=== PATIENT | male | born 1955 | race Caucasian/White ===

== ENCOUNTER → 2017-09-29 | Outpatient (CLI) | payer OTHER ==
[~2017-09-29] MED LIST: ASPIR 8181 MG PO; CIPRO500 MG; COREG3.125 MG PO; GABAPENTIN100 MG PO; GLUCOPHAGE500 MG PO; LANTUS100 UNIT/M SUBQ; LEVAQUIN 500 M500 M2 PO; METFORMIN HCL500 MG PO; PEPCID20 MG PO
== END ==
LOC: M.RAD 10:51
DX: K59.00 Constipation, unspecified (principal); R10.9 Unspecified abdominal pain; R19.7 Diarrhea, unspecified

== ENCOUNTER → 2017-11-30 | Outpatient (CLI) | payer OTHER | LOC: M.ULTRA 07:00 | DX: I83.891 Varicose veins of right lower extremity with other complications (principal); M79.89 Other specified soft tissue disorders; R60.1 Generalized edema; I10 Essential (primary) hypertension; E11.9 Type 2 diabetes mellitus without complications ==

== ENCOUNTER → 2018-03-09 | Outpatient (CLI) | payer OTHER | LOC: M.ULTRA 03-05 08:00 | DX: R60.9 Edema, unspecified (principal) ==

== ENCOUNTER → 2018-03-26 | Outpatient (CLI) | payer OTHER | LOC: M.RAD 07:13 | DX: M25.512 Pain in left shoulder (principal) ==

== ENCOUNTER → 2018-03-29 | Outpatient (CLI) | payer OTHER | LOC: M.MRI 03-26 07:30 → EDSEX 03-26 07:30 → M.MRI 07:19 | DX: R22.32 Localized swelling, mass and lump, left upper limb (principal) ==

== ENCOUNTER → 2018-12-17 | Outpatient (CLI) | payer MEDICARE, OTHER | LOC: M.ULTRA 07:30 | DX: N28.1 Cyst of kidney, acquired (principal); R10.11 Right upper quadrant pain; R11.0 Nausea ==

== ENCOUNTER 2019-01-26 20:32 | Emergency (ER) | payer MEDICARE, OTHER ==
[~2019-01-26] VITALS: Ht 185.4 cm; Wt 98.9 kg
[2019-01-26] MEDS ORDERED: LISINOPRIL-HCT1 EAC2 PO (20:45)
[2019-01-26] MEDS ORDERED: TRULICITY0.75 MG/0. SQ (20:46)
[2019-01-26 21:08] LABS: ABSOLUTE BASOPHILS 0.1 thou/uL (0.0-0.2); ABSOLUTE EOSINOPHILS 0.8 thou/uL (0.0-0.7); ABSOLUTE LYMPHOCYTES 2.6 thou/uL (0.8-5.3); ABSOLUTE MONOCYTES 0.5 thou/uL (0.0-1.2); ABSOLUTE NEUTROPHILS 4.2 thou/uL (1.6-8.1); BASOPHILS 1.2 %; EOSINOPHILS 9.2 %; HEMATOCRIT 35.2 % (42.0-52.0); HEMOGLOBIN 12.5 gm/dL (14.0-18.0); LYMPHOCYTES 32.2 %; MCH 30.8 pg (26.0-34.0); MCHC 35.4 g/dL (28.0-37.0); MONOCYTES 6.1 %; MPV 6.9 fl. (7.2-11.1); NUCLEATED RBCS 0 /100WBC; PLATELET COUNT* 297 thou/uL (150-400); POLYS 51.3 %; RBC 4.05 mil/uL (4.50-6.00); RDW-CV 12.8 % (10.5-14.5); WBC 8.2 thou/uL (4.0-11.0)
[2019-01-26 21:15] LABS: CALCIUM 9.3 mg/dL (8.5-10.1); CREATININE 1.2 mg/dL (0.6-1.3); POTASSIUM 4.2 mmol/L (3.5-5.1)
[2019-01-26 21:20] LABS: ALBUMIN 2.9 g/dL (3.4-5.0); TOTAL BILIRUBIN 0.2 mg/dL (<0.1-1.0); TOTAL PROTEIN 5.9 g/dL (6.4-8.2)
[2019-01-26] MEDS ORDERED: NORCO 5-325 TA1 EAC1 PO (21:34)
[2019-01-26 21:52] VITALS: BP 155/102
--- NOTE | 2019-01-29 08:36 | EKG ---
[place] [address] ELECTROCARDIOGRAM REPORT Name: CARLOS MEDELLIN JR Room: [facility]#: [id number] Admission: 01/26/19 Attend Phys: Discharge: 01/26/19 Date of : 51 Report #: [id number] THIS REPORT FOR: //name// [facility] ED Test Date: 2019-01-26 Test Time: 21:02:41 Pat Name: CARLOS MEDELLIN Department: Room: Gender: M Hospital Unit Coordinator: : 1955 Requested By: Carlyle Quiroga Order Number: [id number] MD: Daquan Israel Measurements Intervals [place] Rate: 93 P: 5 VT: 184 QRS: 6 QRSD: 76 T: 54 QT: 327 QTc: 407 Interpretive Statements Sinus rhythm Compared to ECG 11/23/2016 17:17:47 No significant changes Electronically Signed On 01-29-2019 8:36:15 CDT by Daquan Israel [email or web address] <ELECTRONICALLY SIGNED> By: Daquan Israel MD, [facility] 01/29/19 0836 01 01 Daquan Israel MD, FACC /EPI
== END 2019-01-26 21:53 | disposition home or self-care (01) ==
LOC: M.ERS 20:32
PROVIDERS: Physician Assistant
DX: E11.42 Type 2 diabetes mellitus with diabetic polyneuropathy (principal); I10 Essential (primary) hypertension; Z87.442 Personal history of urinary calculi; Z79.4 Long term (current) use of insulin; Z88.0 Allergy status to penicillin

== ENCOUNTER → 2019-08-13 | Outpatient (CLI) | payer MEDICARE, OTHER ==
[~2019-08-13] MED LIST changes: +LISINOPRIL-HCT1 EAC2 PO; +NORCO 5-325 TA1 EAC1 PO; +TRULICITY0.75 MG/0. SQ
--- NOTE | 2019-08-13 13:48 | 2DMMODE ---
[place] [address] 2 D/M-MODE ECHOCARDIOGRAM Name: CARLOS MEDELLIN JR Room: [facility]#: [id number] Admission: 08/13/19 Attend Phys: Daquan Israel, Discharge: Date of : 51 Date of Service: 08/13/19 1346 Report #: [id number] THIS REPORT FOR: cc: Carolina Garg MD, Katrina MD Liston, Michael J. MD [facility] ~ APPROVED REPORT Study performed: 08/13/2019 11:15:09 EXAM: Comprehensive 2D, Doppler, and color-flow Echocardiogram Patient Location: Out-Patient BSA: 2.31 HR: 94 bpm BP: 148/82 mmHg Other Information Study Quality: Good Indications CAD 2D Dimensions IVSd: 12.73 (7-11mm) LVOT Diam: 20.32 (18-24mm) LVDd: 44.84 mm PWd: 11.29 (7-11mm) Ascending Ao: 26.20 (22-36mm) LVDs: 27.83 (25-40mm) Aortic Root: 30.63 mm Volumes Left Atrial Volume (Systole) LA ESV Index: 13.30 mL/m2 Aortic Valve AoV Peak Eric.: 1.01 m/s AO Peak Gr.: 4.12 mmHg LVOT Max P.36 mmHg AO Mean Gr.: 2.52 mmHg LVOT Mean P.25 mmHg LVOT Max V: 1.04 m/s AO V2 VTI: 20.57 cm LVOT Mean V: 0.69 m/s YOMI (VTI): 3.32 cm2 LVOT V1 VTI: 21.04 cm Mitral Valve E/A Ratio: 0.69 [place] [address] 2 D/M-MODE ECHOCARDIOGRAM Name: CARLOS MEDELLIN JR Room: [facility]#: [id number] Admission: 08/13/19 Attend Phys: Daquan Israel, Discharge: Date of : 51 Date of Service: 08/13/19 1346 Report #: [id number] MV Decel. Time: 87.02 ms MV E Max Eric.: 0.70 m/s MV PHT: 25.24 ms MVA (PHT): 8.72 cm2 TDI E/Lateral E': 10.00 E/Medial E': 11.67 Medial E' Eric.: 0.06 m/s Lateral E' Eric.: 0.07 m/s Pulmonary Valve PV Peak Eric.: 0.78 m/s PV Peak Gr.: 2.45 mmHg Left Ventricle The left ventricle is normal size. There is normal LV segmental wall motion. There is normal left ventricular wall thickness. Left ventricular systolic function is normal. LVEF is 60-65%. Grade I - abnormal relaxation pattern. Right Ventricle The right ventricle is normal size. The right ventricular systolic function is normal. Atria The left atrium size is normal. The right atrium size is normal. Aortic Valve The aortic valve is normal in structure. No aortic regurgitation is present. There is no aortic valvular stenosis. Mitral Valve The mitral valve is normal in structure. There is no mitral valve regurgitation noted. No evidence of mitral valve stenosis. Tricuspid Valve The tricuspid valve is normal in structure. There is no tricuspid valve regurgitation noted. Pulmonic Valve The pulmonary valve is normal in structure. There is no pulmonic valvular regurgitation. Great Vessels The aortic root is normal in size. IVC is normal in size and collapses >50% [place] [address] 2 D/M-MODE ECHOCARDIOGRAM Name: CARLOS MEDELLIN JR Room: [facility]#: [id number] Admission: 08/13/19 Attend Phys: Daquan Israel, Discharge: Date of : 51 Date of Service: 08/13/19 1346 Report #: [id number] Pericardium There is no pericardial effusion. <Conclusion> The left ventricle is normal size. There is normal left ventricular wall thickness. Left ventricular systolic function is normal. LVEF is 60-65%. Grade I - abnormal relaxation pattern. IVC is normal in size and collapses >50% with inspiration. <ELECTRONICALLY SIGNED> By: Daquan Israel MD, FACC 08/13/19 1346 1346 Daquan Israel MD, FACC /INF
--- NOTE | 2019-08-13 14:16 | CARDNUC ---
[place] [address] CARDIAC NUCLEAR IMAGING REPORT Name: CARLOS MEDELLIN JR Room: [facility]#: [id number] Admission: 08/13/19 Attend Phys: Daquan Israel, Discharge: Date of : 51 Date of Service: 08/13/19 1415 Report #: [id number] THIS REPORT FOR: cc: Carolina Garg MD, Katrina MD Liston, Michael J. MD [facility] ~ APPROVED REPORT Imaging Protocol: Stress Tc-99m/Rest Tc-99m 1 day Study performed: 08/13/2019 07:30:00 Indication: Chest pain, Dyspnea, Fatigue, Edema. Patient Location: Out-Patient Stress Tech: Alix Figueroa Stress Nurse: Therese Barahona RN Ht: 6 ft 1 in Wt: 236 lbs BSA: 2.31 m2 BMI: 31.13 Medical History Medical History: Angina, Dyspnea, LE Edema, increased Fatigue, Neuropathy, HLD, HTN, DM. Medications: Lasix, K-Dur, Metformin, Lantus. Allergies: Penicillins. Cardiac Risk Factors: Age, Diabetes (insulin), Edema, Dyspnea, Chest pain, HTN, HLD, BMI 31.13. Previous Cardiac Procedures: None Pretest Chest Pain Characteristics: No chest pain Exercise History: Indeterminate Physical Disabilities: Dyspnea, Unstable gait, generalized weakness. Meds Held (24 hrs): None Resting Data Rest SPECT myocardial perfusion imaging was performed in supine position 30 minutes following the intravenous injection of 9.7 mCi of Tc-99m Sestamibi. Time of rest injection: 07:50 The images were gated to evaluate regional wall motion and calculate left ventricular ejection fraction. Administration Route: IV Administration Site: Right [place] [address] CARDIAC NUCLEAR IMAGING REPORT Name: CARLOS MEDELLIN JR Room: [facility]#: [id number] Admission: 08/13/19 Attend Phys: Daquan Israel, Discharge: Date of : 51 Date of Service: 08/13/19 1415 Report #: [id number] Pharmacologic stress test was performed by injecting Regadenoson 0.4 mg IV push over 10-15 seconds immediately followed by the intravenous injection of 33.7 mCi of Tc-99m Sestamibi. Time of stress injection: 09:30 Administration Route: IV Administration Site: Right Hand Heart Rate at time of stress injection: 121 bpm. Gated Stress SPECT was performed 40 minutes after stress injection. The images were gated to evaluate regional wall motion and calculate left ventricular ejection fraction. Prone imaging was performed. Stress Test Details Stress Test: Pharmacologic stress was paired with low level exercise. Reason for pharmacologic stress test: Generalized weakness, unstable gait.. HR Max Heart Rate (APMHR): 155 bpm Resting HR: 90 bpm Target HR (85% APMHR): 131 bpm Max HR Achieved: 121 bpm % of APMHR: 78 Recovery HR: 104 bpm BP Resting BP: 174/109 mmHg Max BP: 148/79 mmHg Recovery BP: 172/99 mmHg ECG Resting ECG: Sinus Rhythm Stress ECG: Sinus Tachycardia ST Change: None Arrhythmia: None Recovery ECG: Sinus Rhythm Recovery ST Change: None Recovery Arrhythmia: None Clinical Reason for Termination: Completed protocol Stress Symptoms: Dyspnea, Lightheadedness, increased weakness. Exercise duration: 4 min 00 sec Exercise capacity: 2.30 METs The patient tolerated walking Lexiscan protocol without [place] [address] CARDIAC NUCLEAR IMAGING REPORT Name: CARLOS MEDELLIN JR Room: [facility]#: [id number] Admission: 08/13/19 Attend Phys: Daquan Israel, Discharge: Date of : 51 Date of Service: 08/13/19 1415 Report #: [id number] Nurse Comments A 63 year old male presented for a walking Lexiscan r/t chest pain, dyspnea, increased fatigue and LE edema. Test well tolerated. Recovery unremarkable with PO caffeine. Patient was escorted by staff to Nuclear Medicine for imaging. Patient was stable and stated he felt good at that time. Stress ECG Conclusion The baseline 12-lead EKG shows sinus rhythm without acute ST segment or T wave abnormality. EKGs obtained during and post walking Lexiscan protocol showed sinus rhythm and sinus tachycardia with no significant ST segment or T wave changes when compared to baseline. There were no stress-induced arrhythmias. Study Quality Study: Good Artifact: No artifact Study Data At rest, the left ventricular ejection fraction was 64%.. Post stress, the left ventricular ejection was 60%.. TID = 1.05. Perfusion Perfusion images obtained at rest and post stress show uniform uptake of the radioisotope throughout the myocardium. There were no defects to suggest infarct or ischemia. Wall Motion Left ventricular systolic function appears normal global and with no focal wall motion abnormalities. Nuclear Conclusion ECG Findings: negative for ischemia Clinical Findings: negative for ischemia Nuclear Findings: negative for ischemia Exercise Capacity: not assessed Left Ventricular Function: normal Risk Study: low Myocardial perfusion images show no defect to suggest infarct or ischemia. Left ventricular systolic function appears normal on gated studies. There were no significant focal wall motion abnormalities. <Conclusion> The baseline 12-lead EKG shows sinus rhythm without acute [place] [address] CARDIAC NUCLEAR IMAGING REPORT Name: CARLOS MEDELLIN JR Room: [facility]#: [id number] Admission: 08/13/19 Attend Phys: Daquan Israel, Discharge: Date of : 51 Date of Service: 08/13/19 1415 Report #: [id number] or T wave abnormality. EKGs obtained during and post walking Lexiscan protocol showed sinus rhythm and sinus tachycardia with no significant ST segment or T wave changes when compared to baseline. There were no stress-induced arrhythmias. <ELECTRONICALLY SIGNED> By: Daquan Israel MD, FACC 08/13/19 1415 1415 1415 Daquan Israel MD, FACC /INF
== END ==
LOC: M.CRD 07-31 15:24 → M.NUC 07:24
DX: R06.02 Shortness of breath (principal); R60.0 Localized edema; E11.42 Type 2 diabetes mellitus with diabetic polyneuropathy; Z79.4 Long term (current) use of insulin

== ENCOUNTER 2020-08-03 18:46 | Observation (INO) | payer MEDICARE, OTHER ==
[~2020-08-03] VITALS: Ht 185.4 cm; Wt 99.8 kg
[2020-08-03 19:09] VITALS: BP 194/101
[2020-08-03] MEDS ORDERED: FUROSEMIDE 40 M40 MG PO (19:16)
[2020-08-03] MEDS ORDERED: LISINOPRIL20 MG PO (19:17)
[2020-08-03] MEDS ORDERED: NORVASC10 MG PO (19:17)
[2020-08-03 20:03] LABS: HEMATOCRIT 33.4 % (42.0-52.0); HEMOGLOBIN 11.3 gm/dL (14.0-18.0); MCH 29.8 pg (26.0-34.0); MCHC 33.8 g/dL (28.0-37.0); MPV 6.7 fl. (7.2-11.1); NUCLEATED RBCS 0 /100WBC; PLATELET COUNT* 290 thou/uL (150-400); RDW-CV 12.7 % (10.5-14.5); WBC 8.5 thou/uL (4.0-11.0)
[2020-08-03 20:13] LABS: CALCIUM 8.5 mg/dL (8.5-10.1); CREATININE 1.5 mg/dL (0.6-1.3); POTASSIUM 4.6 mmol/L (3.5-5.1)
[2020-08-03 20:15] LABS: APTT 27.1 Seconds (25.0-31.3); PROTIME 10.7 Seconds (9.20-11.50)
[2020-08-03 20:23] LABS: TOTAL BILIRUBIN 0.4 mg/dL (<0.1-1.0); TOTAL PROTEIN 6.5 g/dL (6.4-8.2)
[2020-08-03 20:43] LABS: ABSOLUTE EOSINOPHILS 0.6 thou/uL (0.0-0.7); ABSOLUTE LYMPHOCYTES 2.1 thou/uL (0.8-5.3); ABSOLUTE MONOCYTES 0.4 thou/uL (0.0-1.2); ABSOLUTE NEUTROPHILS 5.4 thou/uL (1.6-8.1); ATYPICAL LYMPHS 3 %; METAMYELOCYTES 1 %
[2020-08-03 20:44] LABS: PLATELET ESTIMATE ADEQUATE
[2020-08-04] VITALS (7 sets, daily range): BP systolic 144–169; BP diastolic 75–96
[2020-08-04] MEDS ORDERED: ASA81BEC PO (08:26)
[2020-08-04] MEDS ORDERED: NITROGLYCERIN0.4 MG SUBLING (08:26)
[2020-08-04] MEDS ORDERED: COREG6.25 MG PO (08:26)
--- NOTE | 2020-08-04 14:11 | EKG ---
[place] [address] ELECTROCARDIOGRAM REPORT Name: CARLOS MEDELLIN JR Room: [address]R.#: [id number] Admission: 08/03/20 Attend Phys: Good Carlisle Discharge: Date of : 51 Date of Service: 08/03/201915 Report #: [id number] THIS REPORT FOR: //name// [facility] ED Test Date: 2020-08-03 Test Time: 19:16:45 Pat Name: CARLOS MEDELLIN Department: Room: [facility] Gender: M Client Support Consultant: KRISTEN : 1955 Requested By: Giovanna Adhikari Order Number: [id number] MD: Shyam Edward Measurements Intervals [place] Rate: 94 P: 26 CO: 177 QRS: 3 QRSD: 82 T: 56 QT: 336 QTc: 421 Interpretive Statements Sinus rhythm Compared to ECG 01/26/2019 21:02:41 No significant changes Electronically Signed On 08-04-2020 14:11:16 CDT by Shyam Edward [email or web address] <ELECTRONICALLY SIGNED> By: Shyam Edward MD, FACC 08/04/20 1411 15 15 Shyam Edward MD, [facility] /EPI
--- NOTE | 2020-08-04 16:16 | 2DMMODE ---
[place] [address] 2 D/M-MODE ECHOCARDIOGRAM Name: MEDELLINCARLOS JR Room: [address] [facility]#: [id number] Admission: 08/03/20 Attend Phys: Good [place]isle Discharge: Date of : 51 Date of Service: 08/04/20 1616 Report #: [id number] THIS REPORT FOR: cc: Carolina Gagr MD, Katrina MD Liston, Michael J. MD [facility] ~ APPROVED REPORT Study performed: 08/04/2020 13:52:32 EXAM: Comprehensive 2D, Doppler, and color-flow Echocardiogram Patient Location: In-Patient Room #: 170- BSA: 2.24 HR: 92 bpm BP: 156/79 mmHg Other Information Study Quality: Good Indications Dyspnea 2D Dimensions IVSd: 10.03 (7-11mm) LVOT Diam: 20.21 (18-24mm) LVDd: 46.34 mm PWd: 9.84 (7-11mm) Ascending Ao: 29.81 (22-36mm) LVDs: 23.12 (25-40mm) Aortic Root: 30.85 mm Volumes Left Atrial Volume (Systole) LA ESV Index: 17.40 mL/m2 Aortic Valve AoV Peak Eric.: 1.14 m/s AO Peak Gr.: 5.22 mmHg LVOT Max P.38 mmHg AO Mean Gr.: 2.95 mmHg LVOT Mean P.82 mmHg LVOT Max V: 0.92 m/s AO V2 VTI: 22.48 cm LVOT Mean V: 0.62 m/s YOMI (VTI): 2.91 cm2 LVOT V1 VTI: 20.43 [place] [address] 2 D/M-MODE ECHOCARDIOGRAM Name: CARLOS MEDELLIN Room: [address] [facility]#: [id number] Admission: 08/03/20 Attend Phys: Good Carlisle Discharge: Date of : 51 Date of Service: 08/04/20 1616 Report #: [id number] E/A Ratio: 0.60 MV Decel. Time: 103.90 ms MV E Max Eric.: 0.67 m/s MV PHT: 30.13 ms MVA (PHT): 7.30 cm2 TDI E/Lateral E': 7.44 E/Medial E': 6.09 Medial E' Eric.: 0.11 m/s Lateral E' Eric.: 0.09 m/s Pulmonary Valve PV Peak Eric.: 0.91 m/s PV Peak Gr.: 3.34 mmHg Left Ventricle The left ventricle is normal size. There is normal LV segmental wall motion. There is normal left ventricular wall thickness. Left ventricular systolic function is normal. LVEF is 55-60%. Grade I - abnormal relaxation pattern. Right Ventricle The right ventricle is normal size. The right ventricular systolic function is normal. Atria The left atrium size is normal. The right atrium size is normal. Aortic Valve The aortic valve is normal in structure. No aortic regurgitation is present. There is no aortic valvular stenosis. Mitral Valve The mitral valve is normal in structure. Mild mitral regurgitation. No evidence of mitral valve stenosis. Tricuspid Valve The tricuspid valve is normal in structure. There is no tricuspid valve regurgitation noted. Pulmonic Valve The pulmonary valve is normal in structure. There is no pulmonic valvular regurgitation. Great Vessels The aortic root is normal in size. IVC [place] [address] 2 D/M-MODE ECHOCARDIOGRAM Name: LACIECARLOS LUIS DARDEN [address] [id number] Admission: 08/03/20 Attend Phys: Good [place]isle Discharge: Date of : 51 Date of Service: 08/04/20 1616 Report #: [id number] collapses >50% with inspiration. Pericardium There is no pericardial effusion. <Conclusion> The left ventricle is normal size. There is normal left ventricular wall thickness. Left ventricular systolic function is normal. LVEF is 55-60%. Grade I - abnormal relaxation pattern. Mild mitral regurgitation. IVC is normal in size and collapses >50% with inspiration. <ELECTRONICALLY SIGNED> By: Daquan Israel MD, FACC 08/04/20 1616 161 161 Daquan Israel MD, FACC /INF
[2020-08-04] MEDS ORDERED: CARVEDILOL12.5 MG PO (16:17)
[2020-08-04] MEDS ORDERED: MAXZIDE-25 MG1 EACH PO (16:17)
== END 2020-08-04 16:55 | disposition home or self-care (01) ==
LOC: M.ERS 18:46 → M.TBA-ER 22:57
PROVIDERS: Personal Emergency Response Attendant; ADMIT Internal Medicine; ATTEND Internal Medicine
DX: I16.0 Hypertensive urgency (principal); Z20.822 Contact with and (suspected) exposure to COVID-19; R07.89 Other chest pain; E11.40 Type 2 diabetes mellitus with diabetic neuropathy, unspecified; H44.819 Hemophthalmos, unspecified eye; I10 Essential (primary) hypertension; I13.2 Hypertensive heart and chronic kidney disease with heart failure and with stage 5 chronic kidney disease, or end stage renal disease; E11.22 Type 2 diabetes mellitus with diabetic chronic kidney disease; I50.33 Acute on chronic diastolic (congestive) heart failure; N18.9 Chronic kidney disease, unspecified; Z79.4 Long term (current) use of insulin; Z79.899 Other long term (current) drug therapy

== ENCOUNTER 2021-02-16 09:21 | Inpatient (IN) | payer MEDICARE, OTHER ==
[~2021-02-16] VITALS: Ht 185.4 cm; Wt 105.8 kg
[~2021-02-16 09:21] MED LIST changes: +ASA81BEC PO; +CARVEDILOL12.5 MG PO; +COREG6.25 MG PO; +FUROSEMIDE 40 M40 MG PO; +LISINOPRIL20 MG PO; +MAXZIDE-25 MG1 EACH PO; +NITROGLYCERIN0.4 MG SUBLING; +NORVASC10 MG PO
[2021-02-16 09:35] VITALS: BP 195/108
[2021-02-16] MEDS ORDERED: NORVASC5 M1 PO (09:41)
[2021-02-16 10:02] LABS: ABSOLUTE BASOPHILS 0.1 thou/uL (0.0-0.2); ABSOLUTE EOSINOPHILS 0.9 thou/uL (0.0-0.7); ABSOLUTE LYMPHOCYTES 1.6 thou/uL (0.8-5.3); ABSOLUTE MONOCYTES 0.5 thou/uL (0.0-1.2); ABSOLUTE NEUTROPHILS 6.1 thou/uL (1.6-8.1); BASOPHILS 1.1 %; HEMOGLOBIN 12.4 gm/dL (14.0-18.0); LYMPHOCYTES 17.2 %; MCHC 34.4 g/dL (28.0-37.0); MCV 87.2 fL (80.0-100.0); MPV 6.9 fl. (7.2-11.1); NUCLEATED RBCS 0 /100WBC; PLATELET COUNT* 363 thou/uL (150-400); POLYS 66.7 %; RBC 4.13 mil/uL (4.50-6.00); RDW-CV 13.1 % (10.5-14.5); WBC 9.1 thou/uL (4.0-11.0)
[2021-02-16 10:05] LABS: CALCIUM 8.4 mg/dL (8.5-10.1); CREATININE 2.1 mg/dL (0.6-1.3); POTASSIUM 5.1 mmol/L (3.5-5.1)
[2021-02-16 10:16] LABS: ALBUMIN 2.7 g/dL (3.4-5.0); TOTAL BILIRUBIN 0.3 mg/dL (<0.1-1.0); TOTAL PROTEIN 6.3 g/dL (6.4-8.2)
[2021-02-16 14:00] VITALS: BP 193/109
[2021-02-16 19:00] VITALS: BP 166/87
[2021-02-16 23:07] VITALS: BP 142/74
[2021-02-17 03:05] VITALS: BP 101/51
[2021-02-17 03:23] LABS: ABSOLUTE BASOPHILS 0.1 thou/uL (0.0-0.2); ABSOLUTE EOSINOPHILS 0.7 thou/uL (0.0-0.7); ABSOLUTE MONOCYTES 0.4 thou/uL (0.0-1.2); ABSOLUTE NEUTROPHILS 4.9 thou/uL (1.6-8.1); BASOPHILS 1.2 %; EOSINOPHILS 8.3 %; HEMATOCRIT 33.1 % (42.0-52.0); HEMOGLOBIN 11.3 gm/dL (14.0-18.0); LYMPHOCYTES 24.2 %; MCHC 34.2 g/dL (28.0-37.0); MCV 87.8 fL (80.0-100.0); MONOCYTES 5.2 %; MPV 6.8 fl. (7.2-11.1); NUCLEATED RBCS 0 /100WBC; PLATELET COUNT* 328 thou/uL (150-400); POLYS 61.1 %; RBC 3.77 mil/uL (4.50-6.00); RDW-CV 13.2 % (10.5-14.5); WBC 8.1 thou/uL (4.0-11.0)
[2021-02-17 03:39] LABS: CALCIUM 8.2 mg/dL (8.5-10.1); CREATININE 2.2 mg/dL (0.6-1.3); POTASSIUM 4.3 mmol/L (3.5-5.1)
[2021-02-17 08:15] VITALS: BP 139/81
--- NOTE | 2021-02-17 08:47 | EKG ---
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
[2021-02-17 10:25] LABS: CHOLESTEROL 183 mg/dL (<200); HDL CHOLESTEROL 37 mg/dL (>40); LDL CHOLESTEROL 112 mg/dL (<100); TC:HDL 4.9 Ratio (Not establshd); TRIGLYCERIDE 174 mg/dL (<150); VLDL 35 mg/dL (<40)
[2021-02-17 10:57] LABS: SERUM ASSESSMENT Clear
[2021-02-17 12:17] VITALS: BP 148/89
--- NOTE | 2021-02-17 13:04 | 2DMMODE ---
[place] [address] 2 D/M-MODE ECHOCARDIOGRAM Name: CARLOS MEDELLIN JR Room: [place] [address] ADM IN Juan.#: [id number] Admission: 02/16/21 Attend Phys: Juan Winters, Discharge: Date of : 51 Date of Service: 02/17/21 1304 Report #: [id number] THIS REPORT FOR: cc: Carolina Garg MD, Katrina MD Blick,Shyam Woodard MD [facility] ~ APPROVED REPORT Study performed: 02/16/2021 16:30:38 EXAM: Comprehensive 2D, Doppler, and color-flow Echocardiogram Patient Location: In-Patient Room #: ER Status: routine BSA: 2.28 HR: 83 bpm BP: 150/80 mmHg Rhythm: NSR Other Information Study Quality: Good Indications Congestive Heart Failure 2D Dimensions IVSd: 13.89 (7-11mm) LVOT Diam: 22.37 (18-24mm) LVDd: 45.35 mm PWd: 11.65 (7-11mm) Ascending Ao: 32.83 (22-36mm) LVDs: 27.73 (25-40mm) Aortic Root: 35.65 mm Volumes Left Atrial Volume (Systole) LA ESV Index: 24.40 mL/m2 Aortic Valve AoV Peak Eric.: 1.48 m/s AO Peak Gr.: 8.75 mmHg LVOT Max P.56 mmHg AO Mean Gr.: 4.99 mmHg LVOT Mean P.22 mmHg LVOT Max V: 1.07 m/s AO V2 VTI: 29.28 cm LVOT Mean V: 0.68 m/s YOMI (VTI): 3.24 cm2 LVOT V1 VTI: 24.14 [place] [address] 2 D/M-MODE ECHOCARDIOGRAM Name: CARLOS MEDELLIN JR Room: [address] IN [facility].#: [id number] Admission: 02/16/21 Attend Phys: Juan Winters, Discharge: Date of : 51 Date of Service: 02/17/21 1304 Report #: [id number] Mitral Valve E/A Ratio: 1.20 MV Decel. Time: 167.83 ms MV E Max Eric.: 1.13 m/s MV PHT: 48.67 ms MVA (PHT): 4.52 cm2 TDI E/Lateral E': 10.27 E/Medial E': 8.07 Medial E' Eric.: 0.14 m/s Lateral E' Eric.: 0.11 m/s Pulmonary Valve PV Peak Eric.: 0.95 m/s PV Peak Gr.: 3.64 mmHg Left Ventricle The left ventricle is normal size. There is normal LV segmental wall motion. Mild concentric left ventricular hypertrophy. Left ventricular systolic function is normal. The left ventricular ejection fraction is within the normal range. LVEF is 60-65%. The left ventricular diastolic function is normal. Right Ventricle The right ventricle is normal size. The right ventricular systolic function is normal. Atria The left atrium size is normal. The right atrium size is normal. Aortic Valve The aortic valve is normal in structure. No aortic regurgitation is present. There is no aortic valvular stenosis. Mitral Valve The mitral valve is normal in structure. Trace mitral regurgitation. No evidence of mitral valve stenosis. Tricuspid Valve The tricuspid valve is normal in structure. Trace tricuspid regurgitation. Unable to assess PA pressure. Pulmonic Valve The pulmonary valve is normal in structure. There is no pulmonic [place] [address] 2 D/M-MODE ECHOCARDIOGRAM Name: CARLOS MEDELLIN JR Room: [address] IN [facility]#: [id number] Admission: 02/16/21 Attend Phys: Juan Winters, Discharge: Date of : 51 Date of Service: 02/17/21 1304 Report #: [id number] Great Vessels The aortic root is normal in size. IVC is normal in size and collapses >50% with inspiration. Pericardium There is no pericardial effusion. <Conclusion> Mild concentric left ventricular hypertrophy. LVEF is 60-65%. <ELECTRONICALLY SIGNED> By: Shyam Edward MD, FACC 02/17/21 1304 03 03 Shyam Edward MD, FACC /INF
[2021-02-17 16:30] VITALS: BP 132/72
[2021-02-17 21:06] LABS: COMPLEMENT-C4 30 mg/dL (12-38)
[2021-02-17 21:23] VITALS: BP 130/68
[2021-02-17 21:35] VITALS: BP 130/68
[2021-02-17] MEDS ORDERED: COREG25 M1 PO (22:32)
[2021-02-17] MEDS ORDERED: TRIAMTERENE-HC1 EAC3 PO (22:33)
[2021-02-18] VITALS: BP 149/80
[2021-02-18 04:00] VITALS: BP 144/79
[2021-02-18 05:15] LABS: CALCIUM 8.1 mg/dL (8.5-10.1); CREATININE 2.1 mg/dL (0.6-1.3); POTASSIUM 4.6 mmol/L (3.5-5.1)
[2021-02-18] MEDS ORDERED: CARDURA4 MG PO (07:45)
[2021-02-18 08:16] VITALS: BP 128/68
[2021-02-18] MEDS ORDERED: BUMETANIDE 1 MG1 M1 PO (08:59)
[2021-02-18 12:00] VITALS: BP 138/76
[2021-02-18 14:00] VITALS: BP 138/76
[2021-02-20 07:36] LABS: HEPATITIS B SURFACE AG Negative (Negative)
[2021-02-22 18:06] LABS: GLOBULIN TOTAL 2.7 g/dL (2.2-3.9); M-SPIKE Not Observed g/dL (Not Observed)
== END 2021-02-18 15:20 | disposition home or self-care (01) | DRG 291 ==
LOC: M.ERS 09:21 → M.TBA-ER 12:07 → M.2W 02-17 21:45
PROVIDERS: Family Medicine; Internal Medicine Nephrology; Registered Nurse; ADMIT Internal Medicine; ATTEND Internal Medicine
DX: I13.0 Hypertensive heart and chronic kidney disease with heart failure and stage 1 through stage 4 chronic kidney disease, or unspecified chronic kidney disease (principal); N17.0 Acute kidney failure with tubular necrosis; I50.33 Acute on chronic diastolic (congestive) heart failure; N18.9 Chronic kidney disease, unspecified; E87.5 Hyperkalemia; E78.5 Hyperlipidemia, unspecified; E11.22 Type 2 diabetes mellitus with diabetic chronic kidney disease; Z20.822 Contact with and (suspected) exposure to COVID-19; Z87.442 Personal history of urinary calculi; Z98.49 Cataract extraction status, unspecified eye; Z79.899 Other long term (current) drug therapy; Z79.4 Long term (current) use of insulin; Z88.0 Allergy status to penicillin; Z91.041 Radiographic dye allergy status

== ENCOUNTER → 2021-03-11 | Outpatient (CLI) | payer MEDICARE, OTHER ==
[~2021-03-11] VITALS: Ht 180.3 cm; Wt 104.3 kg
[~2021-03-11] MED LIST changes: +BUMETANIDE 1 MG1 M1 PO; +CARDURA4 MG PO; +COREG25 M1 PO; +NORVASC5 M1 PO; +TRIAMTERENE-HC1 EAC3 PO
--- NOTE | 2021-03-11 17:48 | CARDNUC ---
[place] [address] CARDIAC NUCLEAR IMAGING REPORT Name: CARLOS MEDELLIN JR Room: [facility]#: [id number] Admission: 03/11/21 Attend Phys: Daquan Israel, Discharge: Date of : 51 Date of Service: 03/11/21 1747 Report #: [id number] THIS REPORT FOR: cc: Carolina Garg MD, Katrina MD Liston, Michael J. MD [facility] ~ APPROVED REPORT Study performed: 03/11/2021 11:05:31 Exam: Nuclear Stress Test Indication: Dyspnea Patient Location: Out-Patient Stress Nurse: Leslee Dawn RN Ht: 6 ft 1 in Wt: 229 lbs BSA: 2.28 m2 BMI: 30.20 Medical History Medical History: CHF, Diabetes, HTN, Hyperlipidemia Medications: CARVEDILOL, CARDURA Allergies: PENICILLIN Cardiac Risk Factors: Age, Hyperlipidemia, HTN Exercise History: Sedentary Meds Held (24 hrs): CARVEDILOL Stress Test Details Stress Test: Pharmacologic stress testing performed using 0.4 mg of regadenoson per 5 mL given IV over 10 seconds. HR Resting HR: 83 bpm Max Heart Rate (APMHR): 153 bpm Max HR Achieved: 88 bpm Target HR (85% APMHR): 130 bpm % of APMHR: 57 Recovery HR: 88 bpm BP Resting BP: 209/99 mmHg Max BP: 107/60 mmHg ECG Resting ECG: Sinus Rhythm Stress ECG: Sinus Rhythm ST Change: [place] [address] CARDIAC NUCLEAR IMAGING REPORT Name: CARLOS MEDELLIN JR Room: [facility]#: [id number] Admission: 03/11/21 Attend Phys: Daquan Israel, Discharge: Date of : 51 Date of Service: 03/11/21 1747 Report #: [id number] Arrhythmia: None Recovery ECG: Sinus Rhythm Recovery ST Change: None Recovery Arrhythmia: None Clinical Reason for Termination: Completed protocol The patient tolerated Lexiscan infusion with no significant cardiac symptoms. Nurse Comments PATIENT IN POOR PHYSICAL CONDITION. UNABLE TO WALK ON TREADMILL Stress ECG Conclusion The baseline twelve-lead EKG shows sinus rhythm without significant ST segment or T wave abnormality. EKGs obtained during and post Lexiscan infusion show sinus rhythm with no significant ST segment or T wave changes when compared to baseline. There were no stress-induced arrhythmias. NM EXAM: Myocardial Perfusion REST/STRESS Resting Data Rest SPECT myocardial perfusion imaging was performed in supine position 30 minutes following the intravenous injection of 10.3 mCi of Tc-99m Sestamibi. Time of rest injection: 10:00 The images were gated to evaluate regional wall motion and calculate left ventricular ejection fraction. Administration Route: IV Administration Site: Left Hand Pharmacologic Stress Pharmacologic stress test was performed by injecting Regadenoson 0.4 mg IV push followed by the intravenous injection of 34.5 mCi of Tc-99m Sestamibi. Time of stress injection: 11:10 Administration Route: IV Administration Site: Left Hand Heart Rate at time of stress injection: 86 bpm. Gated Stress SPECT was performed 45 minutes after stress injection. The images were gated to evaluate regional wall motion and calculate left ventricular ejection fraction. Prone [place] [address] CARDIAC NUCLEAR IMAGING REPORT Name: CARLOS MEDELLIN JR Room: [facility]#: [id number] Admission: 03/11/21 Attend Phys: Daquan Israel, Discharge: Date of : 51 Date of Service: 03/11/21 1747 Report #: [id number] Study Quality Study: Good Artifact: Mild Diaphragmatic artifact Study Data At rest, the left ventricular ejection fraction was 66%.. Post stress, the left ventricular ejection was 65%.. TID = 1.03. Perfusion Perfusion images obtained in the supine position at rest and post Lexiscan stress show mild photopenia in the basal to mid inferior wall that resolves with post-rest prone imaging suggesting diaphragmatic attenuation artifact. No other significant fixed or reversible defects are identified. Wall Motion Normal left ventricular wall motion. Nuclear Conclusion ECG Findings: negative for ischemia Clinical Findings: negative for ischemia Nuclear Findings: negative for ischemia Exercise Capacity: not assessed Left Ventricular Function: normal Risk Study: low Perfusion images show no defect to suggest infarct or ischemia. Left ventricular systolic function appears normal on gated studies. This is a low risk study. <Conclusion> The baseline twelve-lead EKG shows sinus rhythm without significant ST segment or T wave abnormality. EKGs obtained during and post Lexiscan infusion show sinus rhythm with no significant ST segment or T wave changes when compared to baseline. There were no stress-induced arrhythmias. <ELECTRONICALLY SIGNED> By: Daquan Israel MD, [facility] 03/11/21 174 46 46 Daquan Israel MD, FACC /INF
== END ==
LOC: M.NUC 03-08 10:55 → M.PUL 08:49 → M.NUC 09:00 → M.PUL 09:30 → M.NUC 10:00
PROVIDERS: ATTEND Internal Medicine Cardiovascular Disease
DX: R06.02 Shortness of breath (principal); I11.0 Hypertensive heart disease with heart failure; I50.9 Heart failure, unspecified; E78.5 Hyperlipidemia, unspecified

== ENCOUNTER → 2021-03-12 | Outpatient (CLI) | payer MEDICARE, OTHER | LOC: M.MRI 03-09 09:55 | PROVIDERS: ATTEND Psychiatry & Neurology Neuromuscular Medicine | DX: M51.27 Other intervertebral disc displacement, lumbosacral region (principal); M48.04 Spinal stenosis, thoracic region; R29.898 Other symptoms and signs involving the musculoskeletal system; M51.26 Other intervertebral disc displacement, lumbar region; M48.07 Spinal stenosis, lumbosacral region; M48.061 Spinal stenosis, lumbar region without neurogenic claudication; M47.816 Spondylosis without myelopathy or radiculopathy, lumbar region; M47.814 Spondylosis without myelopathy or radiculopathy, thoracic region; M51.24 Other intervertebral disc displacement, thoracic region; E11.42 Type 2 diabetes mellitus with diabetic polyneuropathy; R32 Unspecified urinary incontinence; I50.33 Acute on chronic diastolic (congestive) heart failure; R68.89 Other general symptoms and signs; M62.81 Muscle weakness (generalized); R27.0 Ataxia, unspecified ==

== ENCOUNTER → 2021-03-24 | Outpatient (CLI) | payer MEDICARE, OTHER | LOC: M.MRI 03-16 13:30 | PROVIDERS: ATTEND Psychiatry & Neurology Neuromuscular Medicine | DX: I67.82 Cerebral ischemia (principal); J32.0 Chronic maxillary sinusitis; R90.82 White matter disease, unspecified; E11.42 Type 2 diabetes mellitus with diabetic polyneuropathy; I50.33 Acute on chronic diastolic (congestive) heart failure; R68.89 Other general symptoms and signs; M62.81 Muscle weakness (generalized); R29.898 Other symptoms and signs involving the musculoskeletal system; R32 Unspecified urinary incontinence; R26.9 Unspecified abnormalities of gait and mobility ==

== ENCOUNTER → 2021-04-28 | Outpatient (CLI) | payer OTHER ==
[~2021-04-28] MED LIST changes: +ASPIRIN325 PO; +EFFER-K 20 MEQ20 ME1 PO; +HYDRALAZINE 2525 MG PO; +LIPITOR 20 MG T20 M1 PO; +MAGNESIUM250 M1 PO; +METOLAZONE 2.52.5 M1 PO; +NORTRIPTYLINE H10 M1 PO; +VITAMIN D21250 MCG PO
[2021-04-28 11:56] LABS: URINE BILIRUBIN NEGATIVE (Negative); URINE BLOOD 1+ (Negative); URINE CLARITY CLEAR; URINE COLOR YELLOW; URINE GLUCOSE-RANDOM 1+ (Negative); URINE KETONES NEGATIVE (Negative); URINE LEUKOCYTES NEGATIVE (Negative); URINE NITRITE NEGATIVE (Negative); URINE PROTEIN 3+ (Negative); URINE SPECIFIC GRAVITY >= 1.030 (1.005-1.030); URINE UROBILINOGEN 0.2 E.U./dl (0.2-1.0)
[2021-04-28 11:59] LABS: HEMATOCRIT 36.4 % (42.0-52.0); HEMOGLOBIN 12.1 gm/dL (14.0-18.0); MCH 29.5 pg (26.0-34.0); MCHC 33.2 g/dL (28.0-37.0); MCV 88.8 fL (80.0-100.0); NUCLEATED RBCS 0 /100WBC; PLATELET COUNT* 321 thou/uL (150-400); WBC 8.6 thou/uL (4.0-11.0)
[2021-04-28 12:15] LABS: BACTERIA 1-9 Few /HPF (None Seen); HYALINE CASTS >10 Many /LPF (None Seen); SQUAMOUS 0-3 Few /LPF (0-3)
[2021-04-28 12:16] LABS: CRYSTALS None Seen /LPF (None Seen); URINE RBC 3-10 Few /HPF (0-2); URINE WBC None Seen /HPF (0-5)
[2021-04-28 12:17] LABS: MAGNESIUM 1.6 mg/dL (1.8-2.4)
[2021-04-28 12:43] LABS: ABSOLUTE BASOPHILS 0.2 thou/uL (0.0-0.2); ABSOLUTE EOSINOPHILS 0.9 thou/uL (0.0-0.7); ABSOLUTE LYMPHOCYTES 2.2 thou/uL (0.8-5.3); ABSOLUTE MONOCYTES 0.3 thou/uL (0.0-1.2); PLATELET ESTIMATE ADEQUATE
[2021-04-28 13:20] LABS: ESR (SEDRATE) 45 mm/hr (0-20)
[2021-04-28 21:06] LABS: IgA 179 mg/dL (61-437); IgG 682 mg/dL (603-1613); IgM 67 mg/dL (20-172)
[2021-04-30 13:09] LABS: ANTI-SSA <0.2 AI (0.0-0.9)
[2021-04-30 18:06] LABS: ANA INTERPRETATION Negative (())
== END ==
LOC: M.LAB 11:20
PROVIDERS: ATTEND Registered Nurse Diabetes Educator
DX: R29.898 Other symptoms and signs involving the musculoskeletal system (principal); R32 Unspecified urinary incontinence; E11.42 Type 2 diabetes mellitus with diabetic polyneuropathy

== ENCOUNTER → 2021-05-29 | Outpatient (CLI) | payer OTHER ==
--- NOTE | 2021-06-06 19:12 | SLEEP ---
[address] [address] SLEEP STUDY REPORT Name: CARLOS MEDELLINMARICEL DARDEN Room: [facility]#: [id number] Admission: 05/29/21 Attend Phys: Daquan Israel MD Discharge: Date of : 51 Report #: [id number] THIS REPORT FOR: cc: Carolina Garg MD, Katrina MD Pervez, Adeel MD ~ DATE OF STUDY: 05/29/2021 SLEEP STUDY INDICATION FOR SLEEP STUDY: Obstructive sleep apnea with severe nocturnal hypoxemia on a recent home sleep study. INTERPRETATION: Total duration of the study is 426 minutes. During this time duration, we recorded sleep for 353 minutes with an overall sleep efficiency of 83.1%. Sleep onset initially occurred 14 minutes of lying on in bed. REM onset occurred 53 minutes after sleep onset. N1 sleep duration is 25%, N2 duration is 52%, N3 duration is 11%, REM duration is 12%. This is a split night sleep study. During initial part of the sleep study, the patient was not on positive airway pressure therapy for 167 minutes, out of which he was asleep for 132 minutes. This included 12.5 minutes of REM sleep. During this time duration, the patient had multiple sleep related respiratory events with an apnea-hypopnea index of 62. These included 21 obstructive apneas in addition to 98 hypopneas. Body position data indicates that the patient was lying supine throughout the sleep study. During the diagnostic portion of the sleep study, the patient did have multiple desaturations. Overall, the patient spent 46 minutes with an O2 saturation in the range of 80-89% and 18 minutes with O2 saturation in the 70s. Mean heart rate was 78. Periodic limb movement index was normal at 0.5. Arousal index was elevated to 26. The patient was subsequently placed on a CPAP and was observed on CPAP therapy for 258 minutes. This included 222 minutes of sleep time, which in turn included 29 minutes of REM sleep. The patient remained in the supine position. Mean heart rate remained around 73. Periodic limb movement index remained normal at 1.4. Arousal index normalized to 6.2. Review of the CPAP titration indicates that there is a favorable response to CPAP therapy. Complete correction of the patient's sleep apnea, however, does not occur. The patient was titrated beginning with a CPAP pressure of 5 cm of water, gradually increasing it to 13 cm of water. On the final CPAP pressure of 13 cm of water, O2 saturation is adequately maintained. REM supine sleep is observed. Occasional sleep related respiratory events, however, continue to occur and apnea-hypopnea index still remains elevated to 13. Complete correction of [place] [address] SLEEP STUDY REPORT Name: CARLOS MEDELLIN JR Room: [facility] Swapnil#: [id number] Admission: 05/29/21 Attend Phys: Daquan Israel MD Discharge: Date of : 51 Report #: [id number] IMPRESSION: 1. Severe obstructive sleep apnea with an apnea-hypopnea index of 62 with severe nocturnal hypoxemia as described above. 2. There is improvement, but not full control noted with the administration of a CPAP of 13 cm of water with this therapy in place. O2 saturations as well as arousal index normalized; however, apnea-hypopnea index is still elevated to 13. REM supine sleep is observed on the final CPAP pressure. RECOMMENDATIONS: 1. For now, recommend placing the patient on a CPAP of 13 cm of water with heated humidity and mask per patient preference while asleep. During the sleep study, a RespirYamiseeWear full face mask, size medium, was used. 2. As described above. There is improvement noted, but not full control of his sleep apnea with the administration of a CPAP, therefore recommend following up in a few months with the memory card data from his CPAP in case an adequate response to CPAP therapy is not clinically seen, then I would recommend in the next few months sending the patient back to the sleep lab for a BiPAP titration. This entire sleep study was reviewed by board certified sleep physician. <ELECTRONICALLY SIGNED> By: Juwan Parish MD 06/06/21 1912 1253 [id number] Parish MD /nt
== END ==
LOC: M.SLEEPLAB 05-28 21:00
PROVIDERS: ATTEND Internal Medicine Cardiovascular Disease
DX: G47.33 Obstructive sleep apnea (adult) (pediatric) (principal); G47.34 Idiopathic sleep related nonobstructive alveolar hypoventilation; R09.02 Hypoxemia

== ENCOUNTER 2021-05-31 04:38 | Inpatient (IN) | payer OTHER ==
[~2021-05-31] VITALS: Ht 185.4 cm; Wt 108.4 kg
[2021-05-31] VITALS (7 sets, daily range): BP systolic 127–199; BP diastolic 57–107
--- NOTE | ~2021-05-31 | CON ---
[address] [address] CONSULTATION Name: CARLOS MEDELLIN Room: [address] Nickolas Kraft#: [id number] Admission: 05/31/21 Attend Phys: Juan Winters MD Discharge: Date of : 51 Report #: [id number] THIS REPORT FOR: cc: Carolina Garg MD, Katrina MD Khosla, Parveen K. MD ~ DATE OF CONSULTATION: 05/31/2021 HISTORY OF PRESENT ILLNESS: This is a 65-year-old male patient who was evaluated by me for generalized fatigue and weakness and he fell. He said he hit left side of the face. was not aware of it. He has a history of hypertension and diabetes. He does not know what his blood sugar was, but he says his blood pressure was very low. The bottom number was 30 according to him. He says usually his blood pressure does not go any low. He was also wobbly when it happened. Symptoms are much better now. REVIEW OF SYSTEMS: Review of systems is extensive. He has a history of neuropathy and does not have much feeling in the lower extremities. He is on diuretics. He had a sleep study done. He has a kidney problem. He has a history of hypertension, diabetes, renal stone. He has tonsillectomy. He has a history of congestive heart failure. He had cataract surgery. He has headache which he mostly described on the left side and that is where he said he fell. That is becoming better. He did have a CT scan of the head in the Emergency Room and that will be described later. He does not complain of any specific eye, ENT, cardiac, respiratory, GI, , musculoskeletal, constitutional, dermatological, hematological, psychiatric, throat, allergic symptom associated with present symptomatology except as described above. PAST MEDICAL HISTORY: Positive for kidney problems, hypertension and diabetes. FAMILY HISTORY: Unremarkable. SOCIAL HISTORY: He is and his was there and she provided some of the history. He denies the use of any alcohol. PHYSICAL EXAMINATION: The patient's examination indicate the patient is alert and responsive. He can follow simple command. His speech looks intact. Cranial nerve examination appear mostly unremarkable. He has reasonably strength in all 4 extremities. He moves all 4 extremities against resistance and against gravity, but he did not do very well with the position sense. His reflexes are absent in the lower extremities. Tone looks symmetrical. He does not appear to be ataxic in the upper extremities. I could not look at the fundus. He is a reasonably built individual. His hearing and vision looks okay. He has no thyroid mass. Pulses are difficult to feel. He has no edema. His blood pressure is 128/57, respirations 18, pulse is 71, temperature is 97.3. [place] [address] CONSULTATION Name: LACIECARLOSJERAMIE SMITH JR [address]: [address]#: [id number] Admission: 05/31/21 Attend Phys: Juan Winters MD Discharge: Date of : 51 Report #: [id number] LABORATORY DATA: White count is 8.8. GFR is only 27. CT scan of the head was reviewed and that does not show any acute process. IMPRESSION AND PLAN: I suspect his symptoms are because of hypotension and the fall. He was hypotensive when it happened and that could have decreased the perfusion to the brain, but that can also lead to small stroke some time. We will go ahead and do the MRI of the brain first to see if we can document any stroke. Thank you very much for allowing me to share in the management of this patient and we will follow the patient, MRI. I discussed all of it with the patient in detail. By: 1627 [id number] Real MD /nt
[~2021-05-31 04:38] MED LIST changes: -ASPIRIN325 PO; -EFFER-K 20 MEQ20 ME1 PO; -HYDRALAZINE 2525 MG PO; -LIPITOR 20 MG T20 M1 PO; -MAGNESIUM250 M1 PO; -METOLAZONE 2.52.5 M1 PO; -NORTRIPTYLINE H10 M1 PO; -VITAMIN D21250 MCG PO
[2021-05-31] MEDS ORDERED: HYDRALAZINE 2525 MG PO (04:56)
[2021-05-31] MEDS ORDERED: EFFER-K 20 MEQ20 ME1 PO (04:56)
[2021-05-31] MEDS ORDERED: VITAMIN D21250 MCG PO (04:57)
[2021-05-31] MEDS ORDERED: METOLAZONE 2.52.5 M1 PO (04:58)
[2021-05-31] MEDS ORDERED: MAGNESIUM250 M1 PO (04:58)
[2021-05-31 05:32] LABS: HEMATOCRIT 37.1 % (42.0-52.0); HEMOGLOBIN 12.3 gm/dL (14.0-18.0); MCH 29.6 pg (26.0-34.0); MCHC 33.1 g/dL (28.0-37.0); MCV 89.4 fL (80.0-100.0); MPV 6.7 fl. (7.2-11.1); NUCLEATED RBCS 0 /100WBC; PLATELET COUNT* 306 thou/uL (150-400); RBC 4.15 mil/uL (4.50-6.00); RDW-CV 13.1 % (10.5-14.5); WBC 8.8 thou/uL (4.0-11.0)
[2021-05-31 05:45] LABS: CALCIUM 8.7 mg/dL (8.5-10.1); CREATININE 2.4 mg/dL (0.6-1.3); MAGNESIUM 1.8 mg/dL (1.8-2.4); POTASSIUM 4.7 mmol/L (3.5-5.1)
[2021-05-31 06:06] LABS: INR 1.1; PROTIME 10.8 Seconds (9.20-11.50)
[2021-05-31 07:22] LABS: ABSOLUTE BASOPHILS 0.2 thou/uL (0.0-0.2); ABSOLUTE EOSINOPHILS 0.4 thou/uL (0.0-0.7); ABSOLUTE LYMPHOCYTES 1.7 thou/uL (0.8-5.3); ABSOLUTE MONOCYTES 0.3 thou/uL (0.0-1.2); ABSOLUTE NEUTROPHILS 6.2 thou/uL (1.6-8.1); PLATELET ESTIMATE ADEQUATE
--- NOTE | 2021-05-31 09:56 | EKG ---
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: : 1955 Requested By: Raysa Stock Order Number: [id number] MD: Shyam Edward Measurements Intervals [place] Rate: 77 P: 28 [place]: 176 QRS: 37 QRSD: 82 T: 78 QT: 371 QTc: 420 Interpretive Statements Sinus rhythm Compared to ECG 02/16/2021 09:57:58 Myocardial infarct finding no longer present Electronically Signed On 05-31-2021 9:56:09 [employer] by Shyam Edward [email or web address] <ELECTRONICALLY SIGNED> By: Shyam Edward MD, [facility] 05/31/21 0956 0458 0458 Shyam Edward MD, [facility] /EPI
[2021-05-31 16:21] LABS: URINE BILIRUBIN NEGATIVE (Negative); URINE BLOOD TRACE (Negative); URINE CLARITY CLEAR; URINE COLOR YELLOW; URINE GLUCOSE-RANDOM 1+ (Negative); URINE KETONES NEGATIVE (Negative); URINE LEUKOCYTES-REFLEX NEGATIVE (Negative); URINE NITRITE-REFLEX NEGATIVE (Negative); URINE PROTEIN 2+ (Negative); URINE UROBILINOGEN 0.2 E.U./dl (0.2-1.0)
[2021-05-31 16:31] LABS: BACTERIA-REFLEX None Seen /HPF (None Seen); CRYSTALS None Seen /LPF (None Seen); HYALINE CASTS 4-10 Moderate /LPF (None Seen); MUCUS None Seen strn/LPF (None Seen); SQUAMOUS 0-3 Few /LPF (0-3); URINE RBC 0-2 Rare /HPF (0-2); URINE WBC-REFLEX 0-5 Rare /HPF (0-5)
[2021-06-01 04:00] VITALS: BP 137/69
[2021-06-01 05:25] LABS: HEMATOCRIT 33.5 % (42.0-52.0); MCH 29.7 pg (26.0-34.0); MCHC 32.9 g/dL (28.0-37.0); RBC 3.72 mil/uL (4.50-6.00); RDW-CV 12.9 % (10.5-14.5); WBC 12.9 thou/uL (4.0-11.0)
[2021-06-01 05:28] LABS: ALBUMIN 2.7 g/dL (3.4-5.0); CREATININE 2.8 mg/dL (0.6-1.3); MAGNESIUM 1.8 mg/dL (1.8-2.4); POTASSIUM 4.4 mmol/L (3.5-5.1); TOTAL BILIRUBIN 0.2 mg/dL (<0.1-1.0); TOTAL PROTEIN 5.8 g/dL (6.4-8.2)
[2021-06-01 08:00] VITALS: BP 137/74
[2021-06-01 11:48] VITALS: BP 151/73
[2021-06-01 16:04] VITALS: BP 129/57
--- NOTE | 2021-06-01 16:20 | 2DMMODE ---
[place] [address] 2 D/M-MODE ECHOCARDIOGRAM Name: CARLOS MEDELLIN JR Room: [address] [address] ADM [place] Swapnil#: [id number] Admission: 05/31/21 Attend Phys: Juan Winters, Discharge: Date of : 51 Date of Service: 06/01/21 1619 Report #: [id number] THIS REPORT FOR: cc: Carolina Garg MD, Katrina MD Blick,Shyam Woodard MD [facility] ~ APPROVED REPORT Study performed: 06/01/2021 14:26:29 EXAM: Comprehensive 2D, Doppler, and color-flow Echocardiogram Patient Location: In-Patient Room #: 227 Status: routine BSA: 2.32 HR: 84 bpm BP: 151/73 mmHg Rhythm: NSR Other Information Study Quality: Good Indications CVA/TIA Echo Enhancing Agent Indication: Rule out Shunt Agent(s) / Amount(s) Used: Agitated Saline 10 cc 2D Dimensions IVSd: 13.62 (7-11mm) LVOT Diam: 21.83 (18-24mm) LVDd: 41.68 mm PWd: 11.46 (7-11mm) Ascending Ao: 33.45 (22-36mm) LVDs: 21.11 (25-40mm) Aortic Root: 35.85 mm Volumes Left Atrial Volume (Systole) LA ESV Index: 21.50 mL/m2 Aortic Valve AoV Peak Eric.: 1.62 m/s AO Peak Gr.: 10.49 mmHg LVOT Max P.93 mmHg AO Mean Gr.: 6.72 mmHg LVOT Mean P[place]84 [place] [address] 2 D/M-MODE ECHOCARDIOGRAM Name: CARLOS MEDELLIN Room: [address] [place] ..#: [id number] Admission: 05/31/21 Attend Phys: Juan Winters, Discharge: Date of : 51 Date of Service: 06/01/21 1619 Report #: [id number] LVOT Max V: 1.41 m/s AO V2 VTI: 32.13 cm LVOT Mean V: 1.05 m/s YOMI (VTI): 3.39 cm2 LVOT V1 VTI: 29.13 cm Mitral Valve E/A Ratio: 1.08 MV Decel. Time: 263.14 ms MV E Max Eric.: 1.11 m/s MV PHT: 76.31 ms MVA (PHT): 2.88 cm2 TDI E/Lateral E': 11.10 E/Medial E': 13.88 Medial E' Eric.: 0.08 m/s Lateral E' Eric.: 0.10 m/s Pulmonary Valve PV Peak Eric.: 0.85 m/s PV Peak Gr.: 2.89 mmHg Tricuspid Valve RAP Estimate: 5.00 mmHg TR Peak Gr.: 29.01 mmHg RVSP: 34.00 mmHg PA Pressure: 34.00 mmHg Left Ventricle The left ventricle is normal size. There is normal LV segmental wall motion. Mild concentric left ventricular hypertrophy. Left ventricular systolic function is normal. The left ventricular ejection fraction is within the normal range. LVEF is 60-65%. The left ventricular diastolic function is normal. Right Ventricle The right ventricle is normal size. The right ventricular systolic function is normal. Atria The left atrium size is normal. The interatrial septum is intact with no evidence for an atrial septal defect. The right atrium size is normal. Aortic Valve The aortic valve is normal in structure. No aortic regurgitation is present. There is no aortic valvular stenosis. Mitral Valve The mitral valve is normal in structure. [place] [address] 2 D/M-MODE ECHOCARDIOGRAM Name: CARLOS MEDELLIN JR Room: [address] [place] .R.#: [id number] Admission: 05/31/21 Attend Phys: Juan Winters, Discharge: Date of : 51 Date of Service: 06/01/21 1619 Report #: [id number] No evidence of mitral valve stenosis. Tricuspid Valve The tricuspid valve is normal in structure. Trace tricuspid regurgitation. estimated pa pressure 35 mmg Pulmonic Valve The pulmonary valve is normal in structure. There is no pulmonic valvular regurgitation. Great Vessels The aortic root is normal in size. IVC is normal in size and collapses >50% with inspiration. Pericardium There is no pericardial effusion. <Conclusion> Mild concentric left ventricular hypertrophy. LVEF is 60-65%. The interatrial septum is intact with no evidence for an atrial septal defect. Trace tricuspid regurgitation. estimated pa pressure 35 mmg <ELECTRONICALLY SIGNED> By: Shyam Edward MD, FACC 06/01/211618 18 18 Shyam Edward MD, FACC /INF
[2021-06-01 20:00] VITALS: BP 112/41
[2021-06-02] VITALS: BP 146/76
[2021-06-02 04:00] VITALS: BP 150/80
[2021-06-02 05:10] LABS: HEMATOCRIT 31.1 % (42.0-52.0); HEMOGLOBIN 10.5 gm/dL (14.0-18.0); MCHC 33.6 g/dL (28.0-37.0); RBC 3.49 mil/uL (4.50-6.00); RDW-CV 12.9 % (10.5-14.5); WBC 7.2 thou/uL (4.0-11.0)
[2021-06-02 06:00] LABS: ALBUMIN 2.6 g/dL (3.4-5.0); CALCIUM 7.9 mg/dL (8.5-10.1); CREATININE 2.9 mg/dL (0.6-1.3); MAGNESIUM 1.9 mg/dL (1.8-2.4); POTASSIUM 4.2 mmol/L (3.5-5.1); TOTAL BILIRUBIN 0.2 mg/dL (<0.1-1.0); TOTAL PROTEIN 5.7 g/dL (6.4-8.2)
[2021-06-02 09:39] LABS: CHOLESTEROL 156 mg/dL (<200); HDL CHOLESTEROL 37 mg/dL (>40); LDL CHOLESTEROL 91 mg/dL (<100); SERUM ASSESSMENT CLEAR; TC:HDL 4.2 Ratio (Not establshd); TRIGLYCERIDE 143 mg/dL (<150); VLDL 29 mg/dL (<40)
[2021-06-02 11:52] VITALS: BP 171/79
[2021-06-02 16:00] VITALS: BP 157/83
[2021-06-02 20:00] VITALS: BP 156/80
[2021-06-03] VITALS: BP 156/84
[2021-06-03 04:00] VITALS: BP 141/60
[2021-06-03 04:02] LABS: HEMATOCRIT 29.9 % (42.0-52.0); HEMOGLOBIN 10.3 gm/dL (14.0-18.0); MCH 30.3 pg (26.0-34.0); MCHC 34.3 g/dL (28.0-37.0); MCV 88.2 fL (80.0-100.0); RBC 3.39 mil/uL (4.50-6.00); RDW-CV 13.1 % (10.5-14.5); WBC 7.5 thou/uL (4.0-11.0)
[2021-06-03 04:18] LABS: ALBUMIN 2.5 g/dL (3.4-5.0); CREATININE 2.7 mg/dL (0.6-1.3); MAGNESIUM 2.1 mg/dL (1.8-2.4); POTASSIUM 4.6 mmol/L (3.5-5.1); TOTAL BILIRUBIN 0.2 mg/dL (<0.1-1.0); TOTAL PROTEIN 5.6 g/dL (6.4-8.2)
[2021-06-03 09:36] VITALS: BP 174/94
[2021-06-03] MEDS ORDERED: ASPIRIN325 PO (09:43)
[2021-06-03] MEDS ORDERED: NORTRIPTYLINE H10 M1 PO (09:43)
[2021-06-03] MEDS ORDERED: LIPITOR 20 MG T20 M1 PO (09:44)
--- NOTE | 2021-06-05 08:54 | CON ---
[address] [address] CONSULTATION Name: CARLOS MEDELLIN Room: [address] [place] .R.#: [id number] Admission: 05/31/21 Attend Phys: Juan Winters MD Discharge: 06/03/21 Date of : 51 Report #: [id number] THIS REPORT FOR: cc: Carolina Garg MD, Katrina MD Arakelov, Alexandr V. MD ~ DATE OF CONSULTATION: 06/03/2021 REQUESTING PHYSICIAN: Dr. Holden. REASON FOR CONSULTATION: Acute on chronic kidney disease. HISTORY OF PRESENT ILLNESS: The patient is a very pleasant 65-year-old gentleman with medical history significant for diabetes mellitus type 2, hypertension, chronic kidney disease stage 3. The patient follows with my partner, Dr. Villela. Dr. Villela has scheduled renal biopsy on this patient, will be done next Monday. The patient admitted with some visual changes and some pain, headache and was diagnosed with a left occipital stroke and the patient was seen by a neurologist. He feels better and is going to go home today. His creatinine on admission was 2.4, went up to 2.9 yesterday to 2.7 today. Again, follow up with Dr. Villela again scheduled for renal biopsy on next Monday. SOCIAL HISTORY: No tobacco, no alcohol abuse. MEDICATIONS: Reviewed. REVIEW OF SYSTEMS: He feels better. His earache and headache resolved. He wants to go home. No dysuria. No chest pain, no shortness of breath. PHYSICAL EXAMINATION: GENERAL: Awake, alert, oriented. VITAL SIGNS: Blood pressure 170/90 earlier this morning was 140/60, heart rate 79, afebrile. HEENT: Pupils are round. NECK: Fatty. LUNGS: Clear. CARDIOVASCULAR: Regular rate. ABDOMEN: Soft. EXTREMITIES: Lower extremities, no edema. ASSESSMENT: 1. Acute on chronic kidney disease, scheduled to have a renal biopsy done. I think that his renal functions are worse due to uncontrolled hypertension. 2. Hypertension. 3. Diabetes mellitus type 2. [place] [address] CONSULTATION Name: CARLOS MEDELLIN Room: [address]#: [id number] Admission: 05/31/21 Attend Phys: Juan Winters MD Discharge: 06/03/21 Date of : 51 Report #: [id number] PLAN: Home. Follow up with Dr. Villela next week. <ELECTRONICALLY SIGNED> By: Torres Ko MD 06/05/21 0854 0932 [id number] Ko MD /nt
== END 2021-06-03 13:04 | disposition home or self-care (01) | DRG 64 ==
LOC: M.ERS 04:38 → M.TBA-ER 06:54 → M.2W 06:54
PROVIDERS: Emergency Medicine; Internal Medicine; ADMIT Internal Medicine; ATTEND Internal Medicine
DX: I63.9 Cerebral infarction, unspecified (principal); N17.0 Acute kidney failure with tubular necrosis; I13.0 Hypertensive heart and chronic kidney disease with heart failure and stage 1 through stage 4 chronic kidney disease, or unspecified chronic kidney disease; Z20.822 Contact with and (suspected) exposure to COVID-19; M48.02 Spinal stenosis, cervical region; I16.0 Hypertensive urgency; N18.30 Chronic kidney disease, stage 3 unspecified; H53.9 Unspecified visual disturbance; E11.22 Type 2 diabetes mellitus with diabetic chronic kidney disease; R51.9 Headache, unspecified; I50.9 Heart failure, unspecified; E11.21 Type 2 diabetes mellitus with diabetic nephropathy; R77.8 Other specified abnormalities of plasma proteins; W17.89XA Other fall from one level to another, initial encounter; Z04.3 Encounter for examination and observation following other accident; E11.40 Type 2 diabetes mellitus with diabetic neuropathy, unspecified; Z79.899 Other long term (current) drug therapy; Z98.49 Cataract extraction status, unspecified eye; Z87.442 Personal history of urinary calculi; Z79.4 Long term (current) use of insulin; Z88.0 Allergy status to penicillin; Z91.041 Radiographic dye allergy status; Z91.81 History of falling; Z83.3 Family history of diabetes mellitus; Z82.49 Family history of ischemic heart disease and other diseases of the circulatory system; Y93.89 Activity, other specified; Y92.009 Unspecified place in unspecified non-institutional (private) residence as the place of occurrence of the external cause; Y99.8 Other external cause status